=== PATIENT | female | born 1990 | race African-American/Black ===

== ENCOUNTER 2018-09-20 08:54 | Emergency (ER) | payer BC ==
[2018-09-20 09:07] VITALS: BMI 32.1
[2018-09-20] MEDS ORDERED: PANTOPRAZOLE SODIUM 40 MG in SODIUM CHLORIDE 100 ML IVPB ONE (09:35)
[2018-09-20] MEDS ORDERED: MAG HYDROX/AL HYDROX/SIMETH 30 ML UNIT-DOSE CUP PO ONE (09:35)
[2018-09-20] MEDS ORDERED: ACETAMINOPHEN 1000 MG/100 ML VIAL (NON FORMULARY) IVPB ONE (09:35)
[2018-09-20] MEDS ORDERED: PANTOPRAZOLE 40 MG TABLET (FP) PO ONE (09:45)
[2018-09-20] MEDS ORDERED: ACETAMINOPHEN 325 MG TABLET (FP) PO ONE (09:45)
--- NOTE | 2018-09-20 09:45 | PDOC ---
History of Present Illness - General Chief Complaint: Pain, Acute Stated Complaint: Problem Time Seen by Provider: 09/20/18 09:04 - History of Present Illness Initial Comments: 09/20/18 10:37 The patient is a 28 year old female, @ 23 weeks, with no significant past medical history who presents to the emergency department with abdominal pain since earlier this morning. The patient reports that she was on her way to work this morning at about 8am when she began to experience a sudden onset of mid epigastric pain. She describes her onset of pain as sharp, constant and a 6/10 in severity. The patient states that following her pain she experienced 2 episodes of non bloody, non bilious vomiting. Pt states that the pain has since subsided significantly but is still present. Denies any nausea at the moment. No F/C. No diarrhea/constipation. The patient denies any vaginal bleed, discharge or urinary symptoms. She denies any sick contact, travel or a change in diet. The patient denies any other symptoms. She denies chest pain, shortness of breath, headache or dizziness. Past History - Past Medical History Allergies/Adverse Reactions: Allergies Allergy/AdvReac Type Severity Reaction Status Date / Time No Known Allergies Allergy Unverified 09/20/18 09:30 Home Medications: Ambulatory Orders Nitrofurantoin Monohyd/M-Cryst [Macrobid -] 100 mg PO BID #14 capsule 09/20/18 COPD: No CHF: No Dialysis: No Hypercholesterolemia: No Psychiatric Problems: No Other medical history: MIGRAINE - Surgical History Cardiac Surgery: No Gastric Stapling: No Lung Surgery: No Neurologic Surgery: No - Immunization History Immunization Up to Date: No - Suicide/Smoking/Psychosocial Hx Smoking History: Never smoked Have you smoked in the past 12 months: No Information on smoking cessation initiated: No Hx Alcohol Use: No Drug/Substance Use Hx: No Review of Systems - Review of Systems Comments:: 09/20/18 10:39 GENERAL/CONSTITUTIONAL: No fever or chills. No weakness. HEAD, EYES, EARS, NOSE AND THROAT: No change in vision. No ear pain or discharge. No sore throat. CARDIOVASCULAR: No chest pain, no shortness of breath, no loss of consciousness RESPIRATORY: No cough, wheezing, or hemoptysis. GASTROINTESTINAL:(+)vomiting, mid abdominal pain. No nausea, diarrhea or constipation. GENITOURINARY: No dysuria, frequency, or change in urination. MUSCULOSKELETAL: No joint or muscle swelling or pain. No neck or back pain. SKIN: No rash NEUROLOGIC: No vertigo, no change in strength/sensation. ENDOCRINE: No increased thirst. No abnormal weight change. HEMATOLOGIC/LYMPHATIC: No anemia, easy bleeding, or history of blood clots. ALLERGIC/IMMUNOLOGIC: No hives or skin allergy. *Physical Exam - Vital Signs Last Vital Signs Temp Pulse Resp BP Pulse Ox 98.6 F 80 16 129/79 100 09/20/18 09:05 09/20/18 09:05 09/20/18 09:05 09/20/18 09:05 09/20/18 09:05 - Physical Exam Comments: 09/20/18 10:39 GENERAL: Awake, alert, and fully oriented, in no acute distress. HEAD: No signs of trauma EYES: PERRLA, EOMI, sclera anicteric, conjunctiva clear ENT: Auricles normal inspection, hearing grossly normal, nares patent, oropharynx clear without exudates. Moist mucosa NECK: Nontender, no stepoffs, Normal ROM, supple, no lymphadenopathy, JVD, or masses LUNGS: Breath sounds equal, clear to auscultation bilaterally. No wheezes, and no crackles HEART: Regular rate and rhythm, normal S1 and S2, no murmurs, rubs or gallops ABDOMEN: + mild epigastric TTP on deep palpation, Soft, normoactive bowel sounds. No guarding, no rebound. No masses EXTREMITIES: Normal range of motion, no edema. No clubbing or cyanosis. No cords, erythema, or tenderness NEUROLOGICAL: Cranial nerves II through XII intact. 5/5 strength and sensation in all extremities, Normal speech, normal gait, normal cerebellar function SKIN: Warm, Dry, normal turgor, no rashes or lesions noted. Moderate Sedation - Procedure Monitoring Vital Signs: Procedure Monitoring Vital Signs Temperature 98.6 F 09/20/18 09:05 Pulse Rate 80 09/20/18 09:05 Respiratory Rate 16 09/20/18 09:05 Blood Pressure 129/79 09/20/18 09:05 O2 Sat by Pulse Oximetry (%) 100 09/20/18 09:05 ED Treatment Course - LABORATORY CBC & Chemistry Diagram: 09/20/18 09:00 09/20/18 09:00 - RADIOLOGY Radiology Studies Ordered: Category Date Time Status ABDOMEN US [US] Stat Ultrasound 09/20/18 09:33 Ordered Medical Decision Making - Medical Decision Making 09/20/18 10:39 28 F @ 23 weeks , presenting with epigastric pain + vomiting. Likely gastritis/gastroenteritis. Pt with negative armijo's but will r/o cholecystitis with US. No lower abdominal pain or tenderness so suggest appy/colitis. No vaginal bleeding to suggest placental abruption. - Labs, lipase - US - GI cocktail 09/20/18 11:09 Labs unremarkable. UA shows 8WBC with + LE and bacteria. Will tx for UTI. US shows normal IUP, normal GB. Mild R hydro noted, likley 2/2 . Pt with no flank pain or CVA tenderness to suggest nephrolithiasis or pyelo. Pt reassessed - now feels much better after meds. Pt is well appearing, with normal vitals. Clinically stable for DC at this time. I discussed the physical exam findings, ancillary test results and final diagnoses with the patient. I answered all of the patient's questions. The patient was satisfied with the care received and felt comfortable with the discharge plan and treatment plan. The patient agrees to follow up with the primary care physician within 24-72 hours. *DC/Admit/Observation/Transfer Diagnosis at time of Disposition: UTI (urinary tract infection), Abdominal pain - Discharge Dispostion Disposition: HOME Condition at time of disposition: Stable - Prescriptions Prescriptions: Nitrofurantoin Monohyd/M-Cryst [Macrobid -] 100 mg PO BID #14 capsule - Referrals Referrals: Zabrina Fenton [Primary Care Provider] - Milan Bell DO [Staff Physician] - - Patient Instructions Printed Discharge Instructions: DI for Abdominal Pain -- Early , DI for Urinary Tract Infection (UTI) Additional Instructions: You may have a urinary tract infection. Take the antibiotics as prescribed to treat it. If you experience worsening or persistent abdominal pain, vomiting, fevers, or any other concerning symptoms, return to the ER immediately. 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 - Post Discharge Activity - Attestations Physician Attestion: 09/20/18 11:18 I, Dr. Mauro Delatorre MD, attest that this document has been prepared under my direction and personally reviewed by me in its entirety. I further attest, that it accurately reflects all work, treatment, procedures and medical decision -making performed by me.
[2018-09-20] MEDS ORDERED: MAG HYDROX/AL HYDROX/SIMETH 30 ML UNIT-DOSE CUP ONE (09:47)
[2018-09-20] MEDS ORDERED: ACETAMINOPHEN 325 MG TABLET (FP) ONE (09:47)
[2018-09-20] MEDS ORDERED: PANTOPRAZOLE 40 MG TABLET (FP) ONE (09:47)
[2018-09-20 09:57] LABS: BASO % 0.4 % (0-2.0); EOS % 1.7 % (0-4.5); HEMATOCRIT 38.8 % (32.4-45.2); HEMOGLOBIN 13.6 GM/dL (10.7-15.3); LYMPH % 17.5 % (8-40); MCH 30.3 pg (25.7-33.7); MCHC 34.9 g/dl (32.0-36.0); MEAN CELL VOLUME 86.8 fl (80-96); MEAN PLT VOLUME 7.7 fl (7.5-11.1); MONO % 3.5 % (3.8-10.2); NEUT % 76.9 % (42.8-82.8); PLATELET COUNT 310 K/MM3 (134-434); RBC 4.47 M/mm3 (3.60-5.2); RDW 13.6 % (11.6-15.6); WHITE BLOOD COUNT 9.9 K/mm3 (4.0-10.0)
[2018-09-20 10:13] LABS: URINE APPEARANCE SLCLOUDY; URINE BILIRUBIN NEGATIVE (<2.0 mg/dL); URINE COLOR YELLOW; URINE GLUCOSE (UA) NEGATIVE (NEGATIVE); URINE KETONE NEGATIVE (NEGATIVE); URINE LEUK ESTERASE TRACE (NEGATIVE); URINE NITRITE NEGATIVE (NEGATIVE); URINE PROTEIN NEGATIVE (NEGATIVE); URINE UROBILINOGEN NEGATIVE mg/dL (0.2-1.0)
[2018-09-20 10:31] LABS: ALK PHOS 63 U/L (45-117); ANION GAP 10 MMOL/L (8-16); BILIRUBIN,TOTAL 0.2 mg/dL (0.2-1); BLOOD UREA NITROGEN 6 mg/dL (7-18); CALCIUM 8.8 mg/dL (8.5-10.1); CHLORIDE 106 mmol/L (98-107); CO2 23 mmol/L (21-32); CREATININE 0.6 mg/dL (0.55-1.3); GLUCOSE,RANDOM 76 mg/dL (74-106); LIPASE 144 U/L (73-393); POTASSIUM 3.7 mmol/L (3.5-5.1); SGOT/AST 12 U/L (15-37); SGPT/ALT 15 U/L (13-61); SODIUM 139 mmol/L (136-145); TOT PROT 6.6 g/dl (6.4-8.2)
[2018-09-20 10:41] LABS: EPI CELLS RARE /HPF (FEW); URINE BACTERIA FEW /hpf (NONE SEEN); URINE HYALINE CAST 1 /lpf; URINE MUCUS FEW
[2018-09-20] MEDS ORDERED: NITROFURANTOIN MACROCRYSTAL 50 MG CAPSULE (FP) PO SCH (11:15)
[2018-09-20] MEDS ORDERED: NITROFURANTOIN MACROCRYSTAL 50 MG CAPSULE (FP) ONE (11:28)
[2018-09-20 12:36] VITALS: BP 123/76; PULSE 76; TEMP 98.2
== END 2018-09-20 13:00 | disposition home or self-care (01) ==
LOC: JER 08:54
DX: O26.892 Other specified pregnancy related conditions, second trimester (principal); O23.42 Unspecified infection of urinary tract in pregnancy, second trimester; Z3A.23 23 weeks gestation of pregnancy
CPT/HCPCS: 36415; 76705-TC; 76815-TC; 80053; 81003; 81015; 83690; 85025; 87086; 99283-25